=== PATIENT | female | born 1955 | race Caucasian/White ===

== ENCOUNTER → 2023-09-04 10:47 | Outpatient (REF) | payer MEDICARE, SELFPAY | LOC: HWRAD 10:47 | PROVIDERS: ATTENDING PHYSICIAN Emergency Medicine | DX: R59.0 Localized enlarged lymph nodes (principal); Z12.31 Encounter for screening mammogram for malignant neoplasm of breast | CPT/HCPCS: 76536; 77063; 77067 ==

== ENCOUNTER → 2024-07-22 13:57 | Outpatient (REF) | payer MEDICARE, SELFPAY | LOC: HWRAD 13:57 | PROVIDERS: ATTENDING PHYSICIAN Internal Medicine Endocrinology, Diabetes & Metabolism; FAMILY PHYSICIAN Emergency Medicine | DX: M81.0 Age-related osteoporosis without current pathological fracture (principal) | CPT/HCPCS: 77080 ==

== ENCOUNTER 2024-12-23 14:36 | Emergency (ER) | payer MEDICARE, SELFPAY ==
[2024-12-23] VITALS (10 sets, daily range): BP systolic 110–132; BP diastolic 78–102; BMI 19.3
--- NOTE | 2024-12-23 15:41 | ED.GENMED ---
History of Present Illness
General
Chief Complaint: Heart Rate Problem
Source: patient
Time Seen by Provider: 12/23/24 15:21
History of Present Illness
History of Present Illness:
Note:
CHIEF COMPLAINT(S)
Heart palpitations, persistent cough.
HISTORY OF PRESENT ILLNESS
The patient, a 69-year-old female, was referred by her doctor today after presenting with a heart rate of 170 beats per minute during a routine visit. The patient reports that she has experienced palpitations previously but has been able to manage
them by taking deep breaths. She expresses a lingering cough that she describes as producing yellow sputum without blood, present both in the morning and throughout the day. The patient notes an awareness of pollen allergies, having experienced
exposure and symptoms while in [place] over the springtime when moving her mother down to [place] and had stayed there for an extended period of time while getting her mother settled in her new home. She denies any chest pain, shortness of breath,
or fever. She associates a previous weight loss with dietary changes, specifically yogurt consumption advised by a relative, and not with an unintended cause.
EXTERNAL RECORDS REVIEWED
The patient mentioned recent blood work that was conducted prior to this visit and brought records for review.
CHRONIC MEDICAL CONDITIONS SIGNIFICANTLY AFFECTING CARE
- Chronic kidney disease, managed for 19 years.
SOCIAL DETERMINANTS AFFECTING HEALTH
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
SOCIAL HISTORY
Occasional alcohol consumption, typically beer. Denies smoking or drug use history.
Past History
Past History
ED Past Medical History: Renal failure and Other (MRSA)
ED Past Surgical History: Gynecological (Hysterectomy), Orthopedic and Tonsilectomy
Social History
Tobacco: Former smoker
Alcohol: Occasional
Drug: None
Personal:
Living: with family
Employment: Employed
Family History
Family History: Other (Atrial fibrillation, CVA)
Review of Systems
Review of Systems
All Other Systems: ROS reviewed and negative except as documented in HPI and ROS (- Cardiovascular: Palpitations noted with an EKG showing an accelerated junctional rhythm. - Respiratory: Persistent coughing with yellow sputum, no associated chest
pain, shortness of breath, or wheezing. - General: No fever, unintentional weight loss, or recent illness.)
Phy Exam
Physical Exam
Physical Exam:
GENERAL: Alert , in no apparent distress
EYE: conjunctiva clear
NECK: Supple, no significant adenopathy.
ENT: o/p clr, mmm.
CARDIAC: Tachycardic rate, normal rhythm, no murmur
LUNGS: Mild rhonchi and faint wheezing noted without overt respiratory distress.
NEUROLOGICAL: Alert and oriented
SKIN: Warm and dry, skin intact.
MUSCULOSKELETAL: well perfused. No edema
PSYCH: Normal and appropriate interaction.
Scores
Heart Failure Risk
Heart Failure Risk Score: Not Applicable
Heart Score for Chest Pain Patients
STEMI patient?: Not applicable
Withdrawal Assessment of Alcohol
Withdrawal Assessment Completed?: Not applicable
Course
Orders/Labs/Results
Orders:
Orders
12/23/24 14:38
Electrocardiogram (*1) Urgent
Reason for Study: Bradycardia / Tachycardia
EKG- Treatment ONCE
12/23/24 15:37
Complete Blood Count/With Diff Urgent
Comprehensive Metabolic Panel Urgent
Magnesium Urgent
TSH Urgent
Troponin I Urgent
12/23/24 15:38
Metoprolol [Lopressor] 5 mg IV NOW STA
Venous Doppler Lwr Ext Bilat [US Periph Venous LOWER Ext Camacho] Urgent
Comment:
Reason For Exam: cough, stage 3 CKD
12/23/24 15:40
D-Dimer Urgent
12/23/24 16:46
Electrocardiogram (*1) Urgent
Reason for Study: Tachycardia
EKG- Treatment ONCE
12/23/24 16:52
CR Chest - 2 Views Urgent
Comment:
Reason For Exam: cough
Abnormal Lab Results
12/23/24
15:37
RBC 3.89 L 10^6/uL
(4.20-5.40)
Hgb 11.8 L g/dL
(12.0-16.0)
Hct 35.8 L %
(37.0-47.0)
Absolute Lymphs (auto) 1.0 L 10^3/uL
(1.2-3.4)
Lymphocytes % 16.1 L %
(20.5-51.1)
Monocytes % 9.4 H %
(1.7-9.3)
Chloride 110 H mmol/L
(98-107)
BUN 46 H mg/dl
(7-17)
Creatinine 2.1 H mg/dL
(0.6-1.0)
12/23/24 15:37
12/23/24 15:37
Vital Signs
Initial and Last Documented VS:
Initial Vital Signs
Temp Pulse Resp BP Pulse Ox
98.2 F 124 20 132/96 98
12/23/24 14:41 12/23/24 14:41 12/23/24 14:41 12/23/24 14:41 12/23/24 14:41
Last Documented Vital Signs
Temp Pulse Resp BP Pulse Ox
98.2 F 72 16 119/84 98
12/23/24 14:41 12/23/24 18:00 12/23/24 18:00 12/23/24 17:31 12/23/24 18:00
MDM/Problems Addressed
Differential Diagnosis Includes:
The Differential Diagnosis includes, in no particular order and is not limited to:
- Supraventricular Tachycardia
- Sinus Tachycardia
- Atrial Fibrillation
- Allergic Bronchitis
- Asthma
- Chronic Obstructive Pulmonary Disease exacerbation
- Lower Respiratory Tract Infection
- Pulmonary Embolism
- Anxiety-Induced Tachycardia
- Hyperthyroidism
MDM/Problems Addressed:
- Obtain blood work and chest X-ray. I am obtaining a D-dimer and an ultrasound of her lower extremities and attempt to avoid any nephrotoxic agents while performing workup for PE although this diagnosis is thought to be much less likely given her
lack of other symptoms combined with chronicity of her cough
- Monitor heart rhythm and rate on telemetry.
- Consider medication to reduce heart rate.
- Referral to cardiology for further evaluation of the accelerated junctional rhythm.
- Avoidance of allergens as a preventive measure against exacerbating the cough.
Chronic conditions affecting care: Kidney disease
*Radiology
Radiology exam reviewed: preliminary read by ED provider (Unremarkable chest x-ray) and radiology read reviewed (Negative for DVT)
*Pulse Oximetry
Patient hypoxic: no
*EKG
Heart Rate: 123
Rate: tachycardiac
Rhythm: junctional
[place]: left axis deviation
*[employer] Golf Cart Repairer Interpretation
Rate: tachycardiac
Rhythm: junctional
*Critical Care Note
Total Time (30-74mins, 75-104mins- exclusive of procedures): Not Applicable
Data Reviewed
Review of Other/Old Records Reveals: Labs and Records
Patient Management
Discussion with other providers: Customs Port Director
Escalation/DeEscalation of care consider admission/obs:
Following 5 mg of IV Lopressor patient's heart rate down into the mid 60s, repeat EKG was performed which shows a normal sinus rhythm without any ischemic changes. Patient remains asymptomatic. I discussed the case with on-call a r collections rep,
Kurt, who is okay with us initiating the patient on low-dose beta-ray and cardiology will follow-up on an outpatient basis. Patient aware of return precautions. I did advise she can use Claritin and Flonase for her possible allergic
symptoms. She is otherwise stable for discharge home.
ED Attending Note
-
Portions of this chart may have been created with voice recognition software.� Occasional wrong word or��sound alike� substitutions may have occurred due to the inherent limitations of voice recognition software.
Discharge Plan
Departure
Patient Disposition: Home (Routine Discharge)
Date of Disposition: 12/23/24
Time of Disposition: 17:55
Patient with high blood pressure during this ER visit?: Yes
Discharge Problem:
Cough, Junctional cardiac arrhythmia
Instructions: Tachycardia
Prescriptions:
New
metoprolol succinate 25 mg tablet extended release 24 hr
25 mg PO DAILY Qty: 30 0RF
No Action
sulfamethoxazole-trimethoprim [Bactrim] 400-80 mg tablet
1 tab PO BID Qty: 14 0RF
Prolia 60 mg/mL Syringe
60 mg SC [id number]
nystatin 100,000 unit/mL suspension
5 ml PO QID 10 Days Qty: 200 0RF
Referrals:
Eloina Downing MD [Family Provider, Internal Medicine]
Mayte De La Torre MD [Active, Cardiology]
Interventions
Interventions:
*Risk Screen - Suicide Last Done: 12/23/24 14:41
*General Assessment Last Done: 12/23/24 14:41
*Neglect/Abuse Screening Last Done: 12/23/24 14:41
*ED- Fall Risk Assessment Last Done: 12/23/24 15:31
*ED COVID-19 Vaccine History Last Done: 12/23/24 15:31
*Nursing Disposition Last Done: 12/23/24 18:00
ED- Cardiac Assessment Last Done: 12/23/24 15:41
ED- Pulmonary Assessment Last Done: 12/23/24 15:41
Discharge Date and Time
Discharge Date/Time: 12/23/24 18:08
Print Language: SALVADOREAN
[2024-12-23] MEDS: LOPRESSOR 5 MG IV (15:47)
[2024-12-23 15:50] LABS: % Basophils 0.9 % (0-2); % Eosinophils 4.2 % (0-6); % Immature Granulocytes 0.2 % (0-0.5); % Lymphocytes 16.1 % (20.5-51.1); % Monocytes 9.4 % (1.7-9.3); % Neutrophils 69.2 % (42.2-75.2); Absolute Basophils 0.1 10^3/uL (0-0.2); Absolute Eosinophils 0.3 10^3/uL (0-0.7); Absolute Monocytes 0.6 10^3/uL (0.1-0.6); Absolute Neutrophils 4.5 10^3/uL (1.4-6.5); Hematocrit 35.8 % (37.0-47.0); Hemoglobin 11.8 g/dL (12.0-16.0); Mean Corpuscular Hgb 30.3 pg (27.0-31.0); Mean Platelet Volume 9.8 fL (7.4-10.4); Nucleated Red Blood Cells % 0 %; Platelet Count 254 10^3/uL (130-400); Red Blood Cell Count 3.89 10^6/uL (4.20-5.40); Red Cell Dist. Width 12.7 % (11.5-14.5); White Blood Cell Count 6.5 10^3/uL (4.8-10.8)
[2024-12-23 15:58] LABS: D-Dimer 0.34 ug/mlFEU (0.00-0.50)
[2024-12-23 16:00] LABS: ALT (SGPT) 23 U/L (0-35); AST (SGOT) 30 U/L (14-36); Albumin 4.2 g/dl (3.5-5.0); Alkaline Phosphatase 78 U/L (38-126); Blood Urea Nitrogen 46 mg/dl (7-17); Carbon Dioxide 26 mmol/L (22-30); Chloride 110 mmol/L (98-107); Estimated Creatinine Clearance 18 ml/min; Glucose 95 mg/dl (70-99); Potassium 5.1 mmol/L (3.5-5.1); Sodium 142 mmol/L (135-145); Total Bilirubin 0.4 mg/dl (0.2-1.3); Total Protein 6.8 g/dl (6.3-8.2); eGFR 25.04
[2024-12-23 16:11] LABS: Troponin I < 0.012 ng/ml
[2024-12-23 16:30] LABS: TSH 1.47 uIU/ml (0.47-4.68)
== END 2024-12-23 18:08 | disposition home or self-care (01) ==
LOC: EMR 14:36
PROVIDERS: Physician Assistant Medical; EMERGENCY PHYSICIAN Emergency Medicine; FAMILY PHYSICIAN Emergency Medicine
DX: R05.9 Cough, unspecified (principal); I49.8 Other specified cardiac arrhythmias; N18.30 Chronic kidney disease, stage 3 unspecified; Z82.3 Family history of stroke; Z87.891 Personal history of nicotine dependence; Z90.710 Acquired absence of both cervix and uterus
CPT/HCPCS: 99284; 96374; 71046; 80053; 83735; 84443; 84484; 85025; 85379; 93005; 93970

== ENCOUNTER → 2025-02-16 12:56 | Outpatient (REF) | payer MEDICARE, SELFPAY | LOC: HWWDC 12:56 | PROVIDERS: ATTENDING PHYSICIAN Emergency Medicine | DX: Z12.31 Encounter for screening mammogram for malignant neoplasm of breast (principal) | CPT/HCPCS: 77063; 77067 ==

== ENCOUNTER → 2025-03-09 14:20 | Outpatient (REF) | payer MEDICARE, SELFPAY | LOC: HWRAD 14:20 | PROVIDERS: FAMILY PHYSICIAN Emergency Medicine | DX: R05.3 Chronic cough (principal) | CPT/HCPCS: 71046 ==

== ENCOUNTER → 2025-05-06 13:08 | Outpatient (REF) | payer MEDICARE, SELFPAY | LOC: HWRAD 13:08 | PROVIDERS: ATTENDING PHYSICIAN Internal Medicine Critical Care Medicine; FAMILY PHYSICIAN Emergency Medicine | DX: J47.9 Bronchiectasis, uncomplicated (principal); R05.3 Chronic cough; R91.8 Other nonspecific abnormal finding of lung field | CPT/HCPCS: 71250 ==

== ENCOUNTER → 2025-05-20 13:57 | Outpatient (REF) | payer MEDICARE, SELFPAY | LOC: HWRCS 13:57 | PROVIDERS: ATTENDING PHYSICIAN Internal Medicine Cardiovascular Disease | DX: R00.0 Tachycardia, unspecified (principal) | CPT/HCPCS: 93306 ==